=== PATIENT | female | born 2000 | race Caucasian/White ===

== ENCOUNTER 2022-08-18 18:06 | Outpatient (CLI) | payer OTHER ==
[2022-08-19] MEDS ORDERED: PRENATAL TABLE1 EAC1 PO (10:38)
[2022-08-19] MEDS ORDERED: CEPHALEXIN500 MG PO (16:06)
== END 2022-08-19 16:56 | disposition home or self-care (01) ==
LOC: OBS/DEL 18:06
PROVIDERS: ATTEND Obstetrics & Gynecology
DX: O23.33 Infections of other parts of urinary tract in pregnancy, third trimester (principal); N39.0 Urinary tract infection, site not specified; Z3A.31 31 weeks gestation of pregnancy